=== PATIENT | male | born 1990 | race Caucasian/White ===

== ENCOUNTER 2016-08-06 08:53 | Emergency (ER) | payer MEDICAID ==
[~2016-08-06] VITALS: Ht 177.8 cm; Wt 86.4 kg
[2016-08-06] MEDS ORDERED: ADV500 IH (09:07)
[2016-08-06] MEDS ORDERED: ALBUTEROL SULFATE 2.5 MG/0.5 ML NEB SOLUTION NEB ONE (10:55)
[2016-08-06] MEDS ORDERED: 0.9% SODIUM CHLORIDE 5 ML NEB SOLUTION NEB ONE (11:09)
[2016-08-06 11:56] VITALS: BP 145/89
== END 2016-08-06 12:11 | disposition home or self-care (01) ==
LOC: EMS 08:55
DX: J45.901 Unspecified asthma with (acute) exacerbation (principal)
CPT/HCPCS: 71010; 94640; 99283; J7613

== ENCOUNTER 2016-08-24 11:55 | Emergency (ER) | payer MEDICAID ==
[~2016-08-24] VITALS: Ht 180.3 cm; Wt 86.4 kg
[~2016-08-24 11:55] MED LIST: ADV500 IH
[2016-08-24 14:13] LABS: BASOPHILS % (AUTO) 0.5 % (0.0-2.0); EOSINOPHILS % (AUTO) 1.3 % (1.0-6.0); HEMATOCRIT 53.8 % (41-53); HEMOGLOBIN 18.1 g/dL (13.5-17.5); LYMPHOCYTES # (AUTO) 1.7 K/uL (1.0-4.8); LYMPHOCYTES % (AUTO) 21.7 % (22.0-44.0); MEAN CORPUSCULAR HGB CONC 33.6 G/dL (31.0-37.0); MEAN CORPUSCULAR VOLUME 89 fL (80-100); MONOCYTES # (AUTO) 0.6 K/uL (0.1-1.0); MONOCYTES % (AUTO) 8.2 % (2.0-9.0); NEUTROPHILS # (AUTO) 5.4 K/uL (1.8-7.7); NEUTROPHILS % (AUTO) 68.3 % (40.0-70.0); PLATELET COUNT (AUTO) 207 K/uL (150-450); RED BLOOD CELL COUNT(AUTO) 6.03 MIL/uL (4.50-5.90); WHITE BLOOD COUNT (AUTO) 7.9 K/uL (4.5-11.0)
[2016-08-24 14:20] LABS: ANION GAP 6 mmol/L (8-16); CALCIUM, TOTAL 9.2 mg/dL (8.8-10.5); CARBON DIOXIDE 31 mmol/L (22-29); CHLORIDE 104 mmol/L (98-107); GLOMERULAR FILTR. RATE CALC > 60 mL/min (>60); POTASSIUM 3.6 mmol/L (3.5-5.1); SODIUM SERUM 141 mmol/L (136-145); UREA NITROGEN, BLOOD 12 mg/dL (7-18)
[2016-08-24 14:26] LABS: ALANINE AMINOTRANSFERASE 23 U/L (12-78); ALBUMIN 4.7 g/dL (3.4-5.0); ASPARTATE AMINOTRANSFERASE 17 U/L (15-37); BILIRUBIN,TOTAL 0.8 mg/dL (0.1-1.0); TOTAL PROTEIN, SERUM 8.6 g/dL (6.4-8.2)
[2016-08-24 15:24] VITALS: BP 127/81
== END 2016-08-24 15:26 | disposition home or self-care (01) ==
LOC: EMS 11:55
DX: R07.89 Other chest pain (principal); J45.909 Unspecified asthma, uncomplicated
CPT/HCPCS: 71020; 93005; 99285